=== PATIENT | male | born 1965 | race Caucasian/White ===

== ENCOUNTER 2018-11-26 12:31 | Emergency (ER) | payer OTHER, SELFPAY ==
[~2018-11-26] VITALS: Ht 175.3 cm; Wt 81.8 kg
[2018-11-26] MEDS ORDERED: OMEP-218 (12:36)
[2018-11-26 13:39] LABS: ALBUMIN 4.2 GM/DL (3.2-5.2); ALT/SGPT 21 U/L (12-78); BILIRUBIN,DIRECT 0.2 MG/DL (0.0-0.2); BILIRUBIN,TOTAL 0.7 MG/DL (0.2-1.0); BLOOD UREA NITROGEN 8 MG/DL (7-18); CALCIUM LEVEL 9.3 MG/DL (8.5-10.1); CARBON DIOXIDE LEVEL 29 MEQ/L (21-32); CHLORIDE LEVEL 107 MEQ/L (98-107); CREATININE FOR GFR 1.03 MG/DL (0.70-1.30); GLOMERULAR FILTRATION RATE > 60.0 (>56); GLUCOSE, FASTING 129 MG/DL (70-100); LIPASE 127 U/L (73-393); POTASSIUM SERUM 3.8 MEQ/L (3.5-5.1); SODIUM LEVEL 140 MEQ/L (136-145); TOTAL PROTEIN 7.5 GM/DL (6.4-8.2)
[2018-11-26] MEDS ORDERED: NS 1,000 ML IV ONE (13:45)
[2018-11-26] MEDS ORDERED: KETOROLAC 30 MG/ML VIAL (J1885) IV ONE (13:45)
[2018-11-26 13:49] LABS: HEMATOCRIT 47.1 % (42.0-52.0); HEMOGLOBIN 15.9 g/dl (13.5-17.5); MEAN CORPUSCULAR HEMOGLOBIN 29.4 pg (27.0-33.0); MEAN CORPUSCULAR HGB CONC 33.8 g/dl (32.0-36.5); MEAN CORPUSCULAR VOLUME 87.2 fl (80.0-96.0); PLATELET COUNT, AUTOMATED 300 10^3/uL (150-450); WHITE BLOOD COUNT 9.4 10^3/uL (4.0-10.0)
--- NOTE | 2018-11-26 14:37 | REP ---
Oral ultrasound for right testicular pain: The testes are normal size. The right testis measures 3.5 by 1.8 x 2.5 cm. Left testis measures 3.8 by 1.3 x 3.1 cm. There is no testicular mass. There is vascular flow in both testes. The Doppler resistive index of the parenchymal arteries in the right testis is 0.63 and the left testis 0.67. The epididymal heads are normal size measuring 5.1 mm on the right and 6.1 mm on the left. Just above the epididymis there is a cyst measuring 1.0 x 0.8 by 1.0 cm. This is nonspecific and could represent an epididymal head cyst or possibly a spermatic cord cyst. Impression: Essentially negative scrotal ultrasound. There are no testicular masses. There is vascular flow in both testes. Superior to the left minimus there is a 1 cm cyst. This could represent an epididymal head cyst or possibly in the spermatic cord cyst. Electronically Signed by Joao Lange MD 11/26/2018 02:29 P
--- NOTE | 2018-11-26 14:41 | REP ---
Bilateral inguinal ultrasonography for hernia: The right and left inguinal canals are evaluated without and with Valsalva. There is no herniation on the right or the left. There are no masses, cysts or fluid collections otherwise. Impression: Negative study. There is no evidence of hernia in the right or the left inguinal canals. Electronically Signed by Joao Lange MD 11/26/2018 02:33 P
[2018-11-26 14:48] VITALS: BP 135/72
--- NOTE | 2018-11-28 07:50 | ED PDOC ---
Post-Departure Follow-Up tim nascimento faxed formal report of scrotal us for fu Franchesca Hu MD Nov 28, 2018 07:50
== END 2018-11-26 15:30 | disposition home or self-care (01) ==
LOC: M ED 12:31
DX: N50.811 Right testicular pain (principal); N44.2 Benign cyst of testis; K21.9 Gastro-esophageal reflux disease without esophagitis; E78.5 Hyperlipidemia, unspecified; Z87.440 Personal history of urinary (tract) infections; Z87.442 Personal history of urinary calculi; F17.210 Nicotine dependence, cigarettes, uncomplicated; Z79.899 Other long term (current) drug therapy
CPT/HCPCS: 76857; 76870; 80048; 80076; 83690; 85027; 93976; 96374; 99284; J1885

== ENCOUNTER 2020-05-03 11:45 | Outpatient (RCR) | payer OTHER ==
[~2020-05-03 11:45] MED LIST: OMEP-218
== END 2020-05-05 ==
LOC: M PT 11:45
PROVIDERS: ATTEND Nurse Practitioner Adult Health
DX: Z51.89 Encounter for other specified aftercare (principal); Z86.73 Personal history of transient ischemic attack (TIA), and cerebral infarction without residual deficits

== ENCOUNTER 2020-05-10 13:02 | Outpatient (RCR) | payer OTHER | END 2020-06-02 | LOC: M OT 13:02 | PROVIDERS: ATTEND Nurse Practitioner Adult Health | DX: Z51.89 Encounter for other specified aftercare (principal); Z86.73 Personal history of transient ischemic attack (TIA), and cerebral infarction without residual deficits ==

== ENCOUNTER → 2020-10-12 | Outpatient (CLI) | payer OTHER ==
[2020-10-12 11:37] LABS: BASO # 0.1 10^3/uL (0.0-0.2); BASO % 1.4 % (0.0-1.0); EOS # 0.4 10^3/uL (0.0-0.5); EOS % 5.2 % (0.0-3.0); HEMATOCRIT 45.7 % (42.0-52.0); HEMOGLOBIN 15.2 g/dl (13.5-17.5); LYMPH # 2.5 10^3/uL (1.5-5.0); LYMPH % 35.8 % (24.0-44.0); MEAN CORPUSCULAR HEMOGLOBIN 29.7 pg (27.0-33.0); MEAN CORPUSCULAR HGB CONC 33.3 g/dl (32.0-36.5); MEAN CORPUSCULAR VOLUME 89.4 fl (80.0-96.0); MONO # 0.8 10^3/uL (0.0-0.8); MONO % 11.6 % (2.0-8.0); NEUTROPHILS # 3.2 10^3/uL (1.5-8.5); NEUTROPHILS % 45.4 % (36.0-66.0); PLATELET COUNT, AUTOMATED 263 10^3/uL (150-450); RED BLOOD COUNT 5.11 10^6/uL (4.30-6.10)
[2020-10-12 11:55] LABS: HEMOGLOBIN A1c 6.1 %
[2020-10-12 12:07] LABS: ALBUMIN 3.8 GM/DL (3.2-5.2); ALT/SGPT 26 U/L (12-78); BLOOD UREA NITROGEN 10 MG/DL (7-18); CALCIUM LEVEL 9.2 MG/DL (8.5-10.1); CARBON DIOXIDE LEVEL 28 MEQ/L (21-32); CHLORIDE LEVEL 106 MEQ/L (98-107); CHOLESTEROL LEVEL 151 MG/DL (<200); CHOLESTEROL RISK RATIO 3.871 (<5); GLOMERULAR FILTRATION RATE > 60.0 (>56); GLUCOSE, FASTING 93 MG/DL (70-100); HDL CHOLESTEROL 39 MG/DL (>40); LDL CHOLESTEROL 89 MG/DL (<100); MAGNESIUM LEVEL 2.1 MG/DL (1.8-2.4); NON-HDL-C 112 MG/DL; POTASSIUM SERUM 4.7 MEQ/L (3.5-5.1); SODIUM LEVEL 141 MEQ/L (136-145); THYROID STIMULATING HORMONE 0.907 uIU/ML (0.358-3.740); TOTAL PROTEIN 6.6 GM/DL (6.4-8.2); TRIGLYCERIDES LEVEL 114 MG/DL (<150)
== END ==
LOC: M LAB 10:57
PROVIDERS: ATTEND Nurse Practitioner Adult Health
DX: I10 Essential (primary) hypertension (principal)

== ENCOUNTER 2022-10-08 11:38 | Emergency (ER) | payer OTHER ==
[~2022-10-08] VITALS: Ht 180.3 cm; Wt 73.6 kg
[~2022-10-08 11:38] MED LIST changes: +OMEP-173; -OMEP-218
[2022-10-08] MEDS ORDERED: SODIUM BICARBONATE 8.4% INJ 50ML SYRINGE ONE (11:39)
[2022-10-08] MEDS ORDERED: EPINEPHrine 1MG/10ML SYRINGE 1.5IN ONE (11:39)
[2022-10-08] MEDS ORDERED: MAGNESIUM SULFATE 1GM/100ML D5W BAG (10MG/ML) ONE (11:39)
== END 2022-10-08 14:20 | disposition expired ==
LOC: M ED 11:38
DX: I46.9 Cardiac arrest, cause unspecified (principal); I10 Essential (primary) hypertension; E78.5 Hyperlipidemia, unspecified; F17.200 Nicotine dependence, unspecified, uncomplicated
CPT/HCPCS: 87635; 99284; J0171; J3475